=== PATIENT | female | born 1955 ===

== ENCOUNTER 2019-03-21 09:33 | Day surgery (SDC) | payer BC ==
[~2019-03-21] VITALS: Ht 162.6 cm; Wt 62.1 kg
[2019-03-21] VITALS (9 sets, daily range): BP systolic 139–172; BP diastolic 65–76
[~2019-03-21 09:33] MED LIST: ASPIR 8181 MG ORAL; ATENOLOL50 MG ORAL; ATORVASTATIN CA20 MG ORAL; LR 1000ml 1,000 ML IVLG SCH; RESVERATROL250 MG PO; [UNRECOGNIZED DRUG - OTHER] PO
--- NOTE | 2019-03-21 09:51 | Short Stay Surgery H&P ---
History of Present Illness History of Present Illness Chief Complaint Screening colon HPI Latasha Fernandez is a 63 year old female who was admitted on for screening colon. Patient History Allergies: Coded Allergies: No Known Allergies (Unverified , 03/20/19) PAST MEDICAL HISTORY: (1) Hypertension (2) Hyperlipidemia (3) History of CVA (cerebrovascular accident) Medication History Scheduled Aspirin* (Aspir 81*), 81 MG ORAL DAILY, (Reported) Atenolol* (Tenormin*), 50 MG ORAL DAILY, (Reported) Atorvastatin Calcium* (Atorvastatin Calcium*), 10 MG ORAL BEDTIME, (Reported) Resveratrol (Resveratrol), 250 MG PO DAILY, (Reported) [Nmn], 100 MG PO DAILY, (Reported) Review of Systems Cardiovascular: Reports: hypertension Respiratory: Reports: no symptoms Skeletal: Reports: no symptoms Gastrointestinal: Reports: no symptoms Genitourinary: Reports: no symptoms Neurologic: Reports: no symptoms Endocrine: Reports: no symptoms Physical Exam Skin: normal HENT: normal Heart: normal Lungs: normal Abdomen: normal Extremities: normal Genitourinary: normal Plan Plan of Care screening colon for cancer/polyp Preop Interventions None. Summary of Findings See the reports. Attestation Are the patient's medical conditions optimized for surgery? Attestation Response: yes Rehan Sotelo MD Mar 21, 2019 09:51
--- NOTE | 2019-03-21 09:52 | Pre-Procedure Note/Attestation ---
Pre-Procedure Note/Attestation Complete Prior to Procedure Planned Procedure: left Procedure Narrative: examination of the colon via colonoscopy Indications for Procedure Pre-Operative Diagnosis: R/O colon CA /polyps Attestation I attest that I discussed the nature of the procedure; its benefits; risks and complications; and alternatives (and the risks and benefits of such alternatives ), prior to the procedure, with the patient (or the patient's legal printing supplies sales representative). I attest that, if there was a reasonable possibility of needing a blood transfusion, the patient (or the patient's legal printing supplies sales representative) was given the [facility] standardized written summary, pursuant to the [place] Blood Safety Act ([place] Health and Safety Code # 1645, as amended). I attest that I re-evaluated the patient just prior to the surgery and that there has been no change in the patient's H&P, except as documented below: Rehan Sotelo MD Mar 21, 2019 09:52
--- NOTE | 2019-03-21 10:02 | Immediate Post-Op Evaluation ---
Immediate Post-Op Evalulation Immediate Post-Op Evalulation Procedure: Diagnostic colonoscopy Date of Evaluation: Mar 21, 2019 Time of Evaluation: 10:50 IV Fluids: LR 600ml Blood Pressure Systolic: 156 Blood Pressure Diastolic: 74 Pulse Rate: 58 Respiratory Rate: 22 O2 Sat by Pulse Oximetry: 100 Temperature (Fahrenheit): 97.6 Pain Score (1-10): 0 Nausea: No Vomiting: No Complications none Patient Status: awake, reacts, patent Hydration Status: adequate Rosita Collier CRNA Mar 21, 2019 10:02
--- NOTE | 2019-03-21 10:02 | Anethesia Preoperative Eval ---
Anesthesia Pre-op PMH/ROS General Date of Evaluation: Mar 21, 2019 Time of Evaluation: 09:59 Anesthesiologist: Rosita Collier CRNA ASA Score: ASA 2 Mallampati Score Class I : Soft palate, uvula, fauces, pillars visible Class II: Soft palate, uvula, fauces visible Class III: Soft palate, base of uvula visible Class IV: Only hard plate visible Mallampati Classification: Class III Surgeon: Ashleigh Diagnosis: colon screening Surgical Procedure: colonoscopy with biopsies Anesthesia History: none Family History: no anesthesia problems Allergies: Coded Allergies: No Known Allergies (Unverified , 03/20/19) Medications: see eMAR Patient NPO?: Yes NPO Date: Mar 21, 2019 NPO Time: 00:00 Past Medical History Cardiovascular: Reports: HTN, other - Hypercholestolemia; Denies: CAD, NE, valve dz, arrhythmia Pulmonary: Denies: asthma, COPD, [place], other Gastrointestinal/Genitourinary: Denies: GERD, CRI, ESRD, other Neurologic/Psychiatric: Reports: CVA, depression/anxiety; Denies: dementia, TIA, other Endocrine: Denies: DM, hypothyroidism, steroids, other HEENT: Reports: other - alleric rhinitis; Denies: cataract (L), cataract (R), glaucoma, [place] (L), [place] (R) Musculoskeletal/Integumentary: Denies: OA, RA, DJD, DDD, edema, other PMH Narrative: as noted above PSxH Narrative: (B) arm liposuction Anesthesia Pre-op Phys. Exam Physician Exam Constitutional: NAD Neurologic: other - alert & oriented Cardiovascular: RRR Respiratory: CTA Gastrointestinal: S/NT/ND Airway Exam Mallampati Score: Class II MO: full Neck: FROM TMD: > 3FB ROM: full Teeth: intact Dentures: no upper, no lower Anesthesia Pre-op A/P Risk Assessment & Plan Assessment: ASA 3, ok to proceed Plan: MAC Status Change Before Surgery: No Pre-Antibiotics Given Within 1 Hr of Incision: Rosita Lynn CRNA Mar 21, 2019 10:02
[2019-03-21] MEDS ORDERED: [UNRECOGNIZED DRUG - OTHER] (10:18)
[2019-03-21] MEDS ORDERED: Lidocaine 1% MPF 10mg/ml 5ml ONE (10:19)
[2019-03-21] MEDS ORDERED: LR 1000ml ONE (10:19)
[2019-03-21] MEDS ORDERED: Propofol 200mg/20ml IV ONE (10:19)
[2019-03-21] MEDS ORDERED: Ketorolac 30mg Inj IV PRN (10:45)
--- NOTE | 2019-03-21 10:45 | Endoscopy Procedure Note ---
Endoscopy Procedure Note General Indication for Procedure: Screening colonoscopy Procedures Performed: colonoscopy - Completely normal total colonoscopy with left colon high redandancy. Specimen: none Pt Tolerated Procedure Well: Yes Estimated Blood Loss: none Anesthesia Anesthesiologist: Rosita Solorzano CRNA Anesthesia: moderate sedation Medications Medication Given: see anesthesia record Inserted Devices Implant(s) used?: No Quality Quality of Bowel Preparation: Fair Did scope reach the cecum?: Yes Was there any complications?: No GI Core Measures 50 yrs or older w/o bx or poly: Yes 10yrs. F/U recommended: Yes Med reason:<3 yrs.: System Reason:<3 yrs.: Rehan Sotelo MD Mar 21, 2019 10:45
--- NOTE | 2019-03-21 10:46 | Discharge Instructions ---
Discharge Instructions Discharge Instructions Follow up with: No need to follow up in the office any more. For Congestive Heart Failure Reminder Report to your physician any weight gain of 5 pounds or more in one week. Rehan Sotelo MD Mar 21, 2019 10:46
--- NOTE | 2019-03-21 11:29 | 48 Hour Post Anesthesia Eval ---
Post Anesthesia Evaluation Procedure: Diagnostic colonoscopy Date of Evaluation: Mar 21, 2019 Time of Evaluation: 11:28 Blood Pressure Systolic: 166 0: 72 Pulse Rate: 54 Respiratory Rate: 23 Temperature (Fahrenheit): 97.4 O2 Sat by Pulse Oximetry: 99 Nausea: No Vomiting: No Pain Intensity: 0 Hydration Status: adequate Cardiopulmonary Status: stable Mental Status/LOC: patient returned to baseline Follow-up Care/Observations: per GI Post-Anesthesia Complications: none Rosita Collier CRNA Mar 21, 2019 11:29
--- NOTE | 2019-03-21 17:30 | Operative Note - Dictated ---
DATE OF OPERATION: 03/21/2019 SURGEON: Rehan Sotelo M.D. PROCEDURE: Total colonoscopy. PREOPERATIVE DIAGNOSIS: Screening colonoscopy. POSTOPERATIVE DIAGNOSIS: Completely normal total colonoscopy with high redundancy of the left colon. MEDICATION USED: Serjio Collier CRNA printer technician. INSTRUMENT: GIF Olympus video colonoscope. DESCRIPTION OF PROCEDURE: The patient after arriving at the endoscopy unit, was told about risks and benefits of the procedure, which she accepted and signed informed consent. She was then put on the left lateral decubitus position. After adequate IV sedation, the scope was gently approached towards the anal area, which looked completely normal. A retroflexion maneuver which was applied in the rectum, which revealed no other major abnormalities. There was no major hemorrhoids, etc. The rectum itself was also within normal limits. At this time, the scope was passed through rather highly redundant left colon, which took significant amount of time to pass through, however, this area was completely normal and no pathology was found such as polyps, tumors etc. No evidence of colitis. Finally, the scope reached towards the splenic flexure. From there, it was introduced into the transverse colon up to the hepatic flexure and finally guided into the right colon all the way to the base of the cecum. All of these areas also remained to be completely within normal limits. No pathological finding was found. Upon reaching to the base of the cecum approximately within 5 minutes, the scope was gradually pulled out as the colon cleanup was fair and there was fluid stool in the colon as well, which has to be washed out and suctioned. The patient tolerated the procedure well and left the endoscopy room in a good condition. Rehan Sotelo M.D. DR: MARVIN JOB#: [id number] CC:
== END 2019-03-21 13:00 | disposition home or self-care (01) ==
LOC: SUR 09:33
DX: Z12.11 Encounter for screening for malignant neoplasm of colon (principal); I10 Essential (primary) hypertension; E78.5 Hyperlipidemia, unspecified; Z86.73 Personal history of transient ischemic attack (TIA), and cerebral infarction without residual deficits; Z79.82 Long term (current) use of aspirin; Z79.899 Other long term (current) drug therapy; F32.9 Major depressive disorder, single episode, unspecified; F41.9 Anxiety disorder, unspecified; E78.00 Pure hypercholesterolemia, unspecified
CPT/HCPCS: 45378; J2704; 94003; 94150